=== PATIENT | male | born 1960 | race Caucasian/White ===

== ENCOUNTER → 2016-05-28 08:38 | Outpatient (CLI) | payer BC ==
[2014-08-03 11:34] VITALS: BMI 37.4
[~2016-05-28 08:38] MED LIST: GLUCOPHAGE500 MG PO; HYZAAR 100-12.51 TAB PO; LEVEMIR100 U/M1 SQ; NOVOLOG MI100 UNIT/1 SQ; PRILOSEC20 MG PO
[2016-05-28 09:37] LABS: CREATININE - SERUM 1.4 mg/dL (0.6-1.3)
== END | disposition home or self-care (01) ==
LOC: D.CT 05-27 09:00 → D.MRI 05-27 13:00 → D.CT 08:38
PROVIDERS: Ophthalmology Ophthalmic Plastic and Reconstructive Surgery
DX: D31.62 Benign neoplasm of unspecified site of left orbit (principal)

== ENCOUNTER 2017-08-06 12:55 | Inpatient (IN) | payer OTHER ==
[~2017-08-06] VITALS: Ht 182.9 cm; Wt 129.7 kg
--- NOTE | ~2017-08-06 | HP ---
PATIENT: REGINA WATKINS MEDICAL RECORD: [id number] ACCOUNT: [id number] LOCATION:[id number] : [id number] ADMISSION DATE: 08/06/17 HISTORY AND PHYSICAL EXAMINATION REASON FOR ADMISSION: Severe abdominal pain, uncontrolled diabetes. HISTORY OF PRESENT ILLNESS: The patient is a 57-year-old male with metabolic syndrome and known diverticulosis. He states he felt well until approximately 5 days ago and developed onset of some abdominal discomfort. He became constipated. He then developed diffuse abdominal pain and nausea without vomiting. He went to a walk-in clinic on [facility] 5 days ago. They told him his blood sugar was high. Chest x-ray was clear and sent him home on MiraLax. He had a fever consistently in the 100-degree range. He came to office today with these symptoms. The patient appeared acutely ill. Lab in the office showed a normal white count of 4500, blood sugar of over 260, azotemia with a BUN and creatinine of 30 and 1.65. His abdomen is diffusely tender. Abdominal series showed normal air appearance, some stool in the colon, otherwise unremarkable. The patient is now admitted for acute abdominal pain, possible diverticulitis, uncontrolled diabetes mellitus with acute renal insufficiency. PAST MEDICAL HISTORY: Metabolic syndrome, essential hypertension, hyperlipidemia, history of BPH, osteoarthritis, remote left renal cell carcinoma post-nephrectomy, hyperlipidemia, and obesity. PAST SURGICAL HISTORY: Left nephrectomy in 2013, cholecystectomy, and umbilical hernia repair in 08/2013. FAMILY HISTORY: Father at 82 of cancer of the brain. ALLERGIES: METFORMIN, LISINOPRIL, PRAVASTATIN, and CODEINE. HOME MEDICATIONS: Testosterone 200 mg IM every 3 weeks, Levemir 35 units subq b.i.d., NovoLog FlexPen per sliding scale, losartan 100/12.5 one p.o. q.a.m., furosemide 20 mg one-half tab p.o. in the morning, potassium ER 10 mEq 1 p.o. in the morning, gabapentin 300 mg at h.s. REVIEW OF SYSTEMS: GENERAL: He has been fatigued with low-grade fever for the last week. Denies confusion. He has had a dull headache. HEENT: No recent visual change, sinus congestion, or sore throat. RESPIRATORY: Not obviously short of breath. He states he has had no cough, sputum production, or hemoptysis. CARDIAC: Denies palpitations, chest pain. He has had some increasing edema in his ankles and feet. GASTROINTESTINAL: He has had nausea without vomiting. He has had more constipation until yesterday when MiraLax caused a small stool. He has had diffuse abdominal pain, worse on the right than the left. ENDOCRINE: Denies polyuria, polydipsia, heat or cold intolerance. NEUROLOGIC: No history of stroke, TIA, or vascular headaches. He has had neuropathy in his feet. He has had a foot ulcer as well. INTEGUMENT: Foot ulcer as mentioned, seeing Dr. Fuller in clinic, gradually improving. No other rash, petechiae appreciated. No pruritus. PSYCHIATRIC: Denies depressed mood. HISTORY AND PHYSICAL [id number] REGINA WATKINS MUSCULOSKELETAL: He has chronic lumbago without sciatica. PHYSICAL EXAMINATION: VITAL SIGNS: Temperature is 99.9 degrees Fahrenheit, heart rate 101, sats 91% on room air, blood pressure was 140/90. GENERAL: The patient appears ill. The patient is alert. HEENT: Normocephalic. Eyes are clear. Pupils reactive. Oropharynx unremarkable. NECK: No bruits, masses or JVD. CHEST: Fine crackles in the bases. No wheeze. He is not tachypneic. HEART: Tachycardic without murmur. ABDOMEN: Obese, mildly distended with hyperactive bowel sounds, diffusely tender right lower quadrant greater than left. RECTAL: Deferred. EXTREMITIES: Shows chronic 2+ pretibial and 3+ bipedal edema. INTEGUMENT: Skin is dry in his ankles and feet. He is nonicteric. NEUROLOGIC: He is oriented to person, place, and time. Cranial nerves intact. Gait was normal. He has decreased sensation to pinprick in bottoms of both feet. PSYCHIATRIC: Denies depressed mood or suicidal ideation. DIAGNOSTIC DATA: White count is 4500 with left shift. BUN is 30, creatinine is 1.67. Urinalysis shows proteinuria, 3-5 red cells, trace bacteriuria. Liver functions, amylase and lipase are pending. Abdominal series as above. ASSESSMENT: 1. Acute abdominal pain with fever, worrisome for diverticulitis. 2. Known diverticulosis. 3. Acute renal insufficiency with unilateral kidney. 4. History of hypernephroma. 5. Obesity. 6. Hyperlipidemia. 7. Hypertension. PLAN: The patient will be admitted for culturing, IV antibiotics, sliding scale insulin. Further workup pending clinical course. TRANSINT:[id number] Voice Confirmation ID: [id number] DOCUMENT ID: [id number] JOSEFINA MARTINEZ MD at 1719 CC: [id number] DICTATION DATE: 08/06/17 1317 CUSHION PADDER: 08/06/17 1412 ADM IN [place] [id number] [place] [id number]
[2017-08-06 15:27] LABS: ALBUMIN 2.7 g/dL (3.4-5.0); BILIRUBIN - DIRECT 0.17 mg/dL (0.00-0.30); BILIRUBIN - INDIRECT 0.37 mg/dL (0.00-1.00); BILIRUBIN - TOTAL 0.54 mg/dL (0.2-1.3); PROTEIN - SERUM 7.2 g/dL (6.4-8.2)
[2017-08-06 16:45] VITALS: BP 143/57; BMI 38.9
[2017-08-06 17:26] VITALS: BP 102/61
[2017-08-06 21:48] VITALS: BP 88/52
[2017-08-07 02:26] VITALS: BP 88/65
[2017-08-07 04:21] LABS: BASOPHILS 0.3 % (0-2); EOSINOPHILS 0 % (0-7); HEMATOCRIT 47.8 % (42.0-54.0); HEMOGLOBIN 15.8 g/dL (13.5-17.5); IMMATURE GRANULOCYTES 0.5 % (0-5); LYMPHOCYTES 24.9 % (15-50); MCH 28.6 pg (26.0-34.0); MCHC 33.1 g/dL (31.0-37.0); MCV 86.4 fL (80.0-100.0); MEAN PLATELET VOLUME 12.2 fL (7.4-10.4); MONOCYTES 9.6 % (2-11); NEUTROPHILS 64.7 % (40-80); RBC 5.53 10x6/uL (4.20-6.10); RDW 14.4 % (11.5-14.5); WBC 3.7 10x3/uL (4.8-10.8)
[2017-08-07 04:27] LABS: PLATELET COUNT 86 10x3/uL (130-400)
[2017-08-07 04:28] VITALS: BP 126/60
[2017-08-07 04:42] LABS: CARBON DIOXIDE 25.9 mmol/L (21.0-32.0); CREATININE - SERUM 2.5 mg/dL (0.6-1.3); POTASSIUM - SERUM 3.9 mmol/L (3.5-5.1)
[2017-08-07 04:47] LABS: CALCIUM 6.6 mg/dL (8.5-10.1)
[2017-08-07 08:55] LABS: APPEARANCE HAZY (CLEAR); BILIRUBIN NEGATIVE (NEGATIVE); COLOR DK YELLOW (YELLOW); GLUCOSE 1000 mg/dL (NEGATIVE); KETONE NEGATIVE (NEGATIVE); NITRITE NEGATIVE (NEGATIVE); PROTEIN 2+ mg/dL (NEGATIVE); SPECIFIC GRAVITY 1.025 (1.005-1.020); UROBILINOGEN NORMAL (NORMAL)
[2017-08-07 08:56] LABS: BACTERIA MODERATE /hpf (NONE SEEN); EPITHELIAL CELLS RARE /hpf (0-5); GRANULAR CAST RARE /lpf (NONE SEEN); MUCUS <1+ /lpf (NONE SEEN); RED CELLS - URINE RARE /hpf (0-5); WHITE CELLS - URINE RARE /hpf (0-5)
[2017-08-07 09:48] VITALS: BP 103/62
[2017-08-07 11:00] VITALS: Ht 182.9 cm; Wt 129.7 kg
[2017-08-07 13:22] VITALS: BP 114/71
[2017-08-07 20:10] LABS: CREATININE - URINE 130.5 mg/dL (30-125); PROTEIN - URINE 124.6 mg/dL (0.0-11.9)
[2017-08-07 20:40] VITALS: BP 104/67
[2017-08-08 00:01] VITALS: BP 101/59
[2017-08-08 05:24] VITALS: BP 112/73
[2017-08-08 06:59] LABS: BASOPHILS 0.3 % (0-2); EOSINOPHILS 0.3 % (0-7); HEMATOCRIT 46.6 % (42.0-54.0); HEMOGLOBIN 15.4 g/dL (13.5-17.5); IMMATURE GRANULOCYTES 0.3 % (0-5); LYMPHOCYTES 28.8 % (15-50); MCH 28.2 pg (26.0-34.0); MCV 85.3 fL (80.0-100.0); MEAN PLATELET VOLUME 12.4 fL (7.4-10.4); MONOCYTES 12.1 % (2-11); NEUTROPHILS 58.2 % (40-80); PLATELET COUNT 77 10x3/uL (130-400); RBC 5.46 10x6/uL (4.20-6.10); WBC 3.7 10x3/uL (4.8-10.8)
[2017-08-08 07:46] LABS: ALBUMIN 2.3 g/dL (3.4-5.0); ALKALINE PHOSPHATASE 184 U/L (46-116); ALT (SGPT) 95 U/L (10-68); AMYLASE - SERUM 56 U/L (25-115); BILIRUBIN - TOTAL 0.46 mg/dL (0.2-1.3); CALC OSMOLALITY 285 mosm/kg (275-300); CARBON DIOXIDE 24.4 mmol/L (21.0-32.0); CHLORIDE - SERUM 100 mmol/L (98-107); CREATINE KINASE 268 UL (21-232); CREATININE - SERUM 2.6 mg/dL (0.6-1.3); GLUCOSE 107 mg/dL (74-106); LIPASE 187 U/L (73-393); POTASSIUM - SERUM 3.7 mmol/L (3.5-5.1); PROTEIN - SERUM 6.2 g/dL (6.4-8.2); SODIUM 136 mmol/L (136-145); UREA NITROGEN 52 mg/dL (7-18); URIC ACID 9.3 mg/dL (2.6-7.2); eGFR NON AFRICAN AMERICAN 27 mL/min (90-120)
[2017-08-08 08:05] LABS: CALCIUM 6.7 mg/dL (8.5-10.1); CKMB 1.5 U/L (0.0-3.6)
[2017-08-08 08:39] VITALS: BP 113/68
[2017-08-08 12:32] VITALS: BP 117/69
[2017-08-08 15:47] VITALS: BP 115/72
[2017-08-08 22:19] VITALS: BP 107/70
[2017-08-09 01:31] VITALS: BP 114/71
[2017-08-09 06:17] LABS: BASOPHILS 0.2 % (0-2); EOSINOPHILS 0.5 % (0-7); HEMATOCRIT 48.2 % (42.0-54.0); IMMATURE GRANULOCYTES 0.2 % (0-5); LYMPHOCYTES 28.5 % (15-50); MCH 28.5 pg (26.0-34.0); MCHC 33.2 g/dL (31.0-37.0); MCV 85.9 fL (80.0-100.0); MEAN PLATELET VOLUME 11.6 fL (7.4-10.4); MONOCYTES 9.6 % (2-11); PLATELET COUNT 87 10x3/uL (130-400); RBC 5.61 10x6/uL (4.20-6.10); RDW 14.9 % (11.5-14.5); WBC 4.3 10x3/uL (4.8-10.8)
[2017-08-09 06:37] LABS: ANION GAP 14.6 mmol/L (8-16); CALCIUM 7.4 mg/dL (8.5-10.1); CARBON DIOXIDE 25.2 mmol/L (21.0-32.0); POTASSIUM - SERUM 3.8 mmol/L (3.5-5.1)
[2017-08-09 08:23] VITALS: BP 132/77
[2017-08-09 11:47] VITALS: BP 122/60
[2017-08-09 15:47] VITALS: BP 124/76
[2017-08-09 22:31] VITALS: BP 131/75
[2017-08-10 04:13] VITALS: BP 129/76
[2017-08-10 05:56] LABS: BASOPHILS 0.5 % (0-2); EOSINOPHILS 0.7 % (0-7); HEMATOCRIT 46.1 % (42.0-54.0); IMMATURE GRANULOCYTES 0.5 % (0-5); LYMPHOCYTES 30.8 % (15-50); MCH 28.1 pg (26.0-34.0); MCHC 32.5 g/dL (31.0-37.0); MCV 86.5 fL (80.0-100.0); MEAN PLATELET VOLUME 11.5 fL (7.4-10.4); MONOCYTES 9.9 % (2-11); NEUTROPHILS 57.6 % (40-80); PLATELET COUNT 95 10x3/uL (130-400); RBC 5.33 10x6/uL (4.20-6.10)
[2017-08-10 06:03] LABS: ANION GAP 12.4 mmol/L (8-16); CALCIUM 7.5 mg/dL (8.5-10.1); CARBON DIOXIDE 27.4 mmol/L (21.0-32.0); CREATININE - SERUM 1.6 mg/dL (0.6-1.3); POTASSIUM - SERUM 3.8 mmol/L (3.5-5.1)
[2017-08-10 08:17] VITALS: BP 157/88
[2017-08-10 12:35] VITALS: BP 144/84
[2017-08-10] MEDS ORDERED: LEVAQUIN250 MG PO (14:19)
[2017-08-10] MEDS ORDERED: COZAAR25 MG PO (14:20)
[2017-08-10] MEDS ORDERED: FLAGYL500 MG PO (14:20)
[2017-08-10 15:57] VITALS: BP 145/82
[2017-08-11 07:29] LABS: SPE - A/G RATIO 0.9 (0.7-1.7); SPE - ALBUMIN 2.6 g/dL (2.9-4.4); SPE - ALPHA-1 GLOBULIN 0.2 g/dL (0.0-0.4); SPE - ALPHA-2 GLOBULIN 0.8 g/dL (0.4-1.0); SPE - BETA GLOBULIN 0.7 g/dL (0.7-1.3); SPE - GAMMA GLOBULIN 1.4 g/dL (0.4-1.8); SPE - M-SPIKE Not Observed g/dL (Not Observed); SPE - TOTAL PROTEIN 5.6 g/dL (6.0-8.5)
== END 2017-08-10 16:25 | disposition home or self-care (01) | DRG 391 ==
LOC: D.MS 12:55
PROVIDERS: Family Medicine; Internal Medicine Nephrology
DX: K57.92 Diverticulitis of intestine, part unspecified, without perforation or abscess without bleeding (principal); N17.0 Acute kidney failure with tubular necrosis; E11.65 Type 2 diabetes mellitus with hyperglycemia; I95.9 Hypotension, unspecified; N28.9 Disorder of kidney and ureter, unspecified; E78.5 Hyperlipidemia, unspecified; E83.51 Hypocalcemia; E88.81 Metabolic syndrome and other insulin resistance; Z68.38 Body mass index [BMI] 38.0-38.9, adult; E66.01 Morbid (severe) obesity due to excess calories; D69.6 Thrombocytopenia, unspecified; E27.8 Other specified disorders of adrenal gland; Z85.528 Personal history of other malignant neoplasm of kidney; Z90.5 Acquired absence of kidney; E11.22 Type 2 diabetes mellitus with diabetic chronic kidney disease; I12.9 Hypertensive chronic kidney disease with stage 1 through stage 4 chronic kidney disease, or unspecified chronic kidney disease; N18.9 Chronic kidney disease, unspecified

== ENCOUNTER → 2019-04-13 08:00 | Outpatient (CLI) | payer OTHER ==
[2017-08-07 11:00] VITALS: BMI 38.8
[~2019-04-13 08:00] MED LIST changes: +COZAAR25 MG PO; +FLAGYL500 MG PO; +LEVAQUIN250 MG PO
== END | disposition home or self-care (01) ==
LOC: D.CT 08:00
PROVIDERS: ATTEND Family Medicine
DX: C64.9 Malignant neoplasm of unspecified kidney, except renal pelvis (principal)